=== PATIENT | male | born 1995 ===

== ENCOUNTER 2018-10-08 07:31 | Emergency (ER) | payer BC ==
[2018-10-08 07:46] VITALS: BMI 28.8
[2018-10-08] MEDS ORDERED: Sodium Chloride 0.9% 1,000 ML IV ONE (08:28)
--- NOTE | 2018-10-08 08:30 | C.PDOC ---
History Of Present Illness 23 y/o healthy male c/o multiple episodes of diarrhea for last few days with pain in rectal area from frequent defecation and irritation, and cramping abdominal pain that resolves after each bm. no sick contact. no recent travel, no fever. Time Seen by Provider: 10/08/18 08:23 Chief Complaint (Nursing): Abdominal Pain History Per: Patient History/Exam Limitations: no limitations Onset/Duration Of Symptoms: Days Current Symptoms Are (Timing): Still Present Severity: Moderate Past Medical History Reviewed: Historical Data, Nursing Documentation, Vital Signs Vital Signs: Last Vital Signs Temp 98.1 F 10/08/18 07:46 Pulse 78 10/08/18 07:46 Resp 18 10/08/18 07:46 BP 129/81 10/08/18 07:46 Pulse Ox 96 10/08/18 07:46 - Medical History PMH: No Chronic Diseases Surgical History: No Surg Hx Family History: States: No Known Family Hx - Social History Hx Alcohol Use: No Hx Substance Use: No - Immunization History Hx Tetanus Toxoid Vaccination: No Hx Influenza Vaccination: No Review Of Systems Constitutional: Negative for: Fever, Chills Gastrointestinal: Positive for: Diarrhea, Rectal Pain. Negative for: Nausea, Vomiting, Abdominal Pain Physical Exam - Physical Exam Appears: Non-toxic, No Acute Distress Skin: Warm, Dry Head: Atraumatic, Normacephalic Eye(s): bilateral: Normal Inspection, PERRL Neck: Supple Chest: No Tenderness Cardiovascular: Rhythm Regular, No Murmur Respiratory: No Decreased Breath Sounds, No Wheezing Gastrointestinal/Abdominal: Bowel Sounds, Soft, No Tenderness, No Distention, No Guarding, No Rebound Rectal: Rectal Tone (shannon;), Other (only secretions in vault. no gross blood. irritated appearing skin perirectal area. chaperoned by Jerod Cristina RN) Back: Normal Inspection Extremity: Normal ROM, No Tenderness, No Swelling Neurological/Psych: Oriented x3, Normal Speech, Normal Cognition ED Course And Treatment - Laboratory Results Result Diagrams: 10/08/18 08:47 10/08/18 08:47 O2 Sat by Pulse Oximetry: 96 Medical Decision Making Medical Decision Making: iv fluids and labs ordered. pt declines iv fluids, prefers to rehydrate orally. 1020 per RN, pt accepted iv fluids, though initially declined. pt left after iv fluids, notified nurse, who removed iv at 0920. pt returned an hour later to ED to enquire about labs; notified he has hematuria and needs to f/u with urology. Disposition Counseled Patient/Family Regarding: Studies Performed, Diagnosis, Need For Fo llowup - Disposition Disposition: ELOPEMENT - ER ONLY Disposition Time: 09:20 Condition: GOOD Forms: [facility] (Salvadorean), General Discharge Instructions - Clinical Impression Clinical Impression: Diarrhea
[2018-10-08 08:49] LABS: SQUAMOUS EPITHIAL 1 /hpf (0-5); URINE BILIRUBIN NEGATIVE (NEGATIVE); URINE BLOOD 3+ (NEGATIVE); URINE CALCIUM OXALATE CRYSTALS OCC /hpf (<OCC); URINE CLARITY Hazy (Clear); URINE COLOR Yellow (YELLOW); URINE GLUCOSE (UA) NORMAL (Normal); URINE LEUKOCYTE ESTERASE TRACE Leu/uL (Negative); URINE PROTEIN NEGATIVE (NEGATIVE); URINE UROBILINOGEN NORMAL mg/dL (0.2-1.0)
[2018-10-08 08:50] LABS: BASO % 0.5 % (0.0-2.0); EOS # 0.2 K/uL (0.0-0.7); EOS % 2.1 % (0.0-4.0); LYMPH % 13.8 % (20.0-40.0); MEAN CELL VOLUME 84.6 fL (80.0-94.0); MEAN CORPUSCULAR HEMOGLOBIN 29.2 pg (27.0-31.0); MEAN CORPUSCULAR HGB CONC 34.6 g/dL (33.0-37.0); MEAN PLATELET VOLUME 7.5 fL (7.2-11.7); MONO # 0.6 K/uL (0.0-0.8); MONO % 8.6 % (0.0-10.0); NEUT # 5.6 K/uL (1.8-7.0); NRBC % 0.1 % (0.0-2.0); RBC 5.13 Mil/uL (4.40-5.90); RED CELL DISTRIBUTION WIDTH 13.2 % (11.5-14.5); WHITE BLOOD COUNT 7.4 K/uL (4.8-10.8)
[2018-10-08] MEDS ORDERED: Sodium Chloride 0.9% 1,000 ML ONE (08:51)
[2018-10-08 09:06] LABS: ALB/GLOB RATIO 1.8 (1.0-2.1); ALBUMIN 4.4 g/dL (3.5-5.0); ALT/SGPT 29 U/L (21-72); AST/SGOT 22 U/L (17-59); BLOOD UREA NITROGEN 10 mg/dL (9-20); CALCIUM 9.2 mg/dl (8.6-10.4); GFR NON-AFRICAN AMERICAN > 60; LIPASE 114 U/L (23-300)
[2018-10-08 09:21] VITALS: BP 126/69; PULSE 76; RESP 20; TEMP 98.2
[2018-10-08 10:24] VITALS: O2SAT 96
== END 2018-10-08 09:25 | disposition left against medical advice (07) ==
LOC: C.ER 07:31
DX: R19.7 Diarrhea, unspecified (principal)
CPT/HCPCS: 80053; 81001; 83690; 85025; 99285; G0328; J7030